=== PATIENT | female | born 2005 | race Caucasian/White ===

== ENCOUNTER → 2025-01-02 | Outpatient (CLI) | payer OTHER ==
[2025-01-02 07:50] LABS: BASO # 0.1 10*3/uL (0.0-0.1); BASO % 0.6 % (0.0-1.0); EOS # 0.4 10*3/uL (0.0-0.4); EOS % 4.7 % (1.0-4.0); HEMATOCRIT 41.1 % (37.0-47.0); MEAN CELL VOLUME 88.2 fl (81.0-99.0); MEAN CORPUSCULAR HGB 29.2 pg (27.0-31.0); MEAN CORPUSCULAR HGB CONC 33.1 g/dl (33.0-37.0); MEAN PLATELET VOLUME 10.8 fl (9.6-12.3); MONO # 0.6 10*3/uL (0.1-1.0); MONO % 7.1 % (3.0-9.0); NEUT # 4.8 10*3/uL (2.3-7.9); NEUT % 62.7 % (47.0-73.0); PLATELET COUNT AUTOMATED 267 10*3/uL (130-400); RED BLOOD COUNT 4.66 10*6/uL (4.10-5.10); RED CELL DISTRI WIDTH 12.4 % (0-14.5); WHITE BLOOD COUNT 7.7 10*3/uL (4.8-10.8)
[2025-01-02 09:10] LABS: ALKALINE PHOSPHATASE 72 U/L (46-116); BUN 12 mg/dl (9-23); CHLORIDE 105 mmol/L (98-107); SGPT/ALT 15 U/L (5-49); TOTAL PROTEIN 7.2 gm/dL (6.0-8.0)
== END | disposition home or self-care (01) ==
LOC: LAB 07:34
PROVIDERS: ATTEND Nurse Practitioner
DX: F32.A Depression, unspecified (principal)

== ENCOUNTER → 2025-02-05 | Outpatient (CLI) | payer OTHER | END | disposition home or self-care (01) | LOC: US 01-19 00:36 | PROVIDERS: ATTEND Nurse Practitioner | DX: I88.8 Other nonspecific lymphadenitis (principal); M54.2 Cervicalgia ==